=== PATIENT | male | born 1960 | race Two or more races ===

== ENCOUNTER 2022-05-11 08:00 | Inpatient (IN) | payer OTHER ==
[~2022-05-11] VITALS: Ht 175.3 cm; Wt 83.9 kg
[2022-05-11] MEDS ORDERED: TAMS0.4C PO (09:16)
[2022-05-11] MEDS ORDERED: ATACAND32 MG PO (09:16)
[2022-05-11] MEDS ORDERED: PROSCAR5 MG PO (09:17)
== END 2022-05-15 13:40 | disposition home or self-care (01) | DRG 714 ==
LOC: O/R 05-14 05:28 → SURH 05-14 08:00
PROVIDERS: ADMIT Urology; ATTEND Urology
PROC: 0VT08ZZ Resection of Prostate, Via Natural or Artificial Opening Endoscopic (ICD-10-PCS; principal; 2022-05-14 09:00)
DX: D29.1 Benign neoplasm of prostate (principal); R33.8 Other retention of urine; Z20.822 Contact with and (suspected) exposure to COVID-19